=== PATIENT | female | born 1980 | race Caucasian/White ===

== ENCOUNTER 2017-03-25 08:19 | Inpatient (IN) | payer MEDICAID, SELFPAY ==
[2017-03-25 08:47] VITALS: BMI 31.0
[2017-03-25] MEDS ORDERED: Carboprost 250 MCG/ML AMP IM PRN (09:19)
[2017-03-25] MEDS ORDERED: LR / Pitocin 40 units/1000 ml 1,000 ML IV PRN (09:19)
[2017-03-25] MEDS ORDERED: Lidocaine 1% (PF) 30 ML VIAL SC PRN (09:19)
[2017-03-25] MEDS ORDERED: Ondansetron HCl/PF 4 MG/2 ML Vial IVP PRN ×2 (09:19→17:39)
[2017-03-25] MEDS ORDERED: HYDROcodone/Acetaminophen 5/325 mg Tablet PO PRN ×2 (09:19)
[2017-03-25] MEDS ORDERED: Diphenoxylate HCl/Atropine Tablet PO PRN ×2 (09:19)
[2017-03-25] MEDS ORDERED: Promethazine HCl 25 MG/ML VIAL IM PRN ×2 (09:19→17:39)
[2017-03-25] MEDS ORDERED: Misoprostol 200 MCG TAB PR PRN (09:19)
[2017-03-25] MEDS ORDERED: Acetaminophen 500 MG TAB PO PRN (09:19)
[2017-03-25] MEDS ORDERED: Ibuprofen 800 MG TAB PO PRN (09:19)
[2017-03-25] MEDS: Lactated Ringer's 1,000 ML IV SCH ×3 (10:02→17:42)
[2017-03-25] MEDS: LR 500 ML/Oxytocin 10 units 500 ML IV SCH ×2 (10:15→20:56)
[2017-03-25 10:38] LABS: Mean Platelet Volume 9.2 fL (7.4-10.4); Red Blood Cell (RBC) Count 4.39 mill/uL (4.20-5.40); White Blood Cell (WBC) Count 6.6 thou/uL (4.8-10.8)
[2017-03-25 11:00] LABS: ALT (SGPT) 10 U/L (8-55); AST (SGOT) 23 U/L (5-34); Alkaline Phosphatase 275 U/L (40-150); Anion Gap 16 mmol/L (10-20); BUN (Urea Nitrogen) 7 mg/dL (7.0-18.7); Bilirubin, Total 0.2 mg/dL (0.2-1.2); Calc. Creatinine Clearance 145 mL/min (70-130); Carbon Dioxide 16 mmol/L (22-29); Chloride 108 mmol/L (98-107); Estimated GFR-MDRD 80; Globulin 3.7 g/dL (2.4-3.5); Protein, Total 6.8 g/dL (6.0-8.3)
--- NOTE | 2017-03-25 11:05 | PDOC.LDHP ---
Labor and Delivery H&P Chief complaint: loss of fluid HPI: Pt is a 36yo @ 40w w LOF at 0700 this AM. Current gestational age (weeks): 40 Due date: 03/25/17 Dating criteria: last menstrual period Grav: 2 Para: 0 Current complications: other (following for S>D) Abnormal US findings: No Past Medical History: none Current medications: pre-renetta vitamins Previous surgical history: none Allergies/Adverse Reactions: Allergies Allergy/AdvReac Type Severity Reaction Status Date / Time No Known Allergies Allergy Verified 03/25/17 08:47 Social history: none - Physical Exam Vital signs reviewed and normal: yes General: resting Lungs: CTAB Abdomen: gravid Extremeties: trace edema FHT: category 1 [place] contractions every: 5 - Vaginal Exam cm dilated: 2 Effacement: 50% Station: -2 - OB Labs Blood type: B RH: positive HIV: negative RPR: negative HEPSAg: negative 1 hour GCT: negative GBS: negative Additional Labs: Rub Immune - Assessment L&D Assessment: term rupture in membranes - Plan Plan: admit to L&D, labor augmentation if indicated, informed consent obtained, anesthesia consult for pain management -: PROM at term, pitocin if indicated, close monitoring w suspected LGA infant, EFW per sono last week 4300gm.
--- NOTE | 2017-03-25 16:39 | PDOC.LDPN ---
Labor & Delivery Progress Note - Subjective Subjective: comfortable - Objective Vital signs reviewed and normal: yes (occ mild range) General: breathing through contractions Dilation: 1 Effacement: 50% Station: -3 FHT: category 1 [place] contractions every: 4 AROM: clear fluid - Assessment (1) 40 weeks gestation of Code(s): Z3A.40 - 40 WEEKS GESTATION OF Current Visit: Yes Status : Acute (2) Premature rupture of membranes Code(s): O42.90 - RAMILA ROM, 7TH0 BETW RUPT & ONST LABR, UNSP WEEKS OF GEST Current Visit: Yes Status: Acute Plan: continue plan of care
--- NOTE | 2017-03-25 16:40 | PDOC.LDPN ---
Labor & Delivery Progress Note - Subjective Subjective: painful contractions - Objective Vital signs reviewed and normal: yes (mild range 140/80) General: breathing through contractions Dilation: 4 Effacement: 50% Station: -3 FHT: category 1 [place] contractions every: 3 AROM: clear fluid - Assessment (1) 40 weeks gestation of Code(s): Z3A.40 - 40 WEEKS GESTATION OF Current Visit: Yes Status : Acute (2) Premature rupture of membranes Code(s): O42.90 - RAMILA ROM, 7TH0 BETW RUPT & ONST LABR, UNSP WEEKS OF GEST Current Visit: Yes Status: Acute Plan: continue plan of care -: Making cervical change, position still high. Cont plan of care.
[2017-03-25] MEDS ORDERED: Fentanyl 4 mcg/Marc 0.1% Cadd 100 ML ONE (16:42)
[2017-03-25] MEDS ORDERED: Fentanyl 100 MCG/2 ML VIAL ONE (17:15)
[2017-03-25] MEDS ORDERED: Acetaminophen 325 MG TAB PO PRN (17:39)
[2017-03-25] MEDS ORDERED: Naloxone HCl 0.4 mg/ml Vial IVP PRN ×2 (17:39)
[2017-03-25] MEDS ORDERED: ePHEDrine/0.9% NaCl/PF SYRINGE 50 mg/10 ml SLOW IVP PRN (17:39)
[2017-03-25] MEDS ORDERED: Eucerin (Mineral Oil/Petrolatum,White) 30 gm Jar TOP PRN (17:39)
[2017-03-25] MEDS ORDERED: Lactated Ringer's 500 ML IV PRN (17:39)
[2017-03-25] MEDS ORDERED: diphenhydrAMINE HCl 50 MG/ML 1 ML VIAL IVP PRN (17:39)
[2017-03-25] MEDS ORDERED: Fentanyl 4mcg/Marcaine 0.1% Cassette 100 ML EPIDURAL SCH (17:45)
[2017-03-25] MEDS ORDERED: Communication Order-Pharmacy FS SCH (17:45)
[2017-03-26] MEDS ORDERED: Lidocaine 1% (PF) 30 ML VIAL ONE (00:57)
[2017-03-26] MEDS: Lactated Ringer's 1,000 ML IV SCH (03:12)
--- NOTE | 2017-03-26 05:40 | PDOC.OPDEL ---
OB Operative/Delivery Note Delivery Dr/Surgeon: Mónica Luevano MD Pre-Delivery Diagnosis: ruptured membrane Procedure/Post Delivery Dx: operative vaginal delivery (vacuum assisted) Weeks gestation: 40 Anesthesia: epidural - Findings A Sex: male - 5 min: 8 - 10 min: 9 - Additional Findings/Plan Placenta delivered: spontaneous Repaired Obstetrical Laceration: 2nd degree Estimated blood loss: 550 Compilations/Other Findings: Patient was 10/100/+1 and pushed for 3.5 hours with decent to +4 station. Vacuum applied due to maternal exhaustion and prolonged second stage. head brought to +5 with 2 contractions at a pressure of 50 cm hg. Pressure released between contractions with a pop off during the release in pressure. Vacuum removed and then head and shoulders delivered over next contraction with ease. Arterial blood gas: pH 7.19 EBL 550, given Methergine 0.2mg and cytotec 800 ug. Post delivery plan: routine recovery
[2017-03-26] MEDS ORDERED: Milk Of Magnesia 30 ML UDCUP PO PRN (08:29)
[2017-03-26] MEDS ORDERED: Bisacodyl 10 MG SUPP PR PRN (08:29)
[2017-03-26] MEDS ORDERED: Varicella virus, LIVE 0.5 ML VIAL SC ONE (08:29)
[2017-03-26] MEDS ORDERED: HYDROcodone/Acetaminophen 5/325 mg Tablet PO PRN ×2 (08:29)
[2017-03-26] MEDS ORDERED: Adacel (T-DAP) 0.5 ML VIAL IM ONE (08:29)
[2017-03-26] MEDS ORDERED: Ondansetron HCl/PF 4 MG/2 ML Vial IVP PRN (08:29)
[2017-03-26] MEDS ORDERED: Measles/Mumps/Rubella 10 MCG/0.5 ML VIAL SC ONE (08:29)
[2017-03-26] MEDS ORDERED: Benzocaine/Menthol 20-0.5% 60 ML CAN TOP PRN (08:29)
[2017-03-26] MEDS ORDERED: LR / Pitocin 40 units/1000 ml 1,000 ML IV SCH (08:30)
[2017-03-26] MEDS: Docusate (Surfak) 240 MG CAP PO SCH ×2 (10:00→21:24)
--- NOTE | 2017-03-26 12:53 | PDOC.PP ---
Post Progress Note Post Day #: 0 -: doing well, tired, a little sore, no heavy bleeding PO intake tolerated: yes Flatus: yes Ambulation: yes Vital Signs (12 hours) Temp Pulse Resp BP 03/26/17 08:45 81 18 117/67 03/26/17 07:50 97.8 F 83 18 03/26/17 07:45 98.8 F 81 18 128/85 Weight Weight 210 lb - Physical Examination General: NAD Neurological: no gross focal deficits Psychiatric: normal affect Result Diagrams: 03/25/17 10:02 03/25/17 10:02 Additional Labs: Post Labs Blood Type B POSITIVE 03/25/17 10:02 Hep Bs Antigen Non-Reactive S/CO (NonReactive) 03/25/17 10:02 (1) 40 weeks gestation of Code(s): Z3A.40 - 40 WEEKS GESTATION OF Status: Acute (2) Premature rupture of membranes Code(s): O42.90 - RAMILA ROM, 7TH0 BETW RUPT & ONST LABR, UNSP WEEKS OF GEST Status: Acute (3) Vaginal delivery Code(s): O80 - ENCOUNTER FOR FULL-TERM UNCOMPLICATED DELIVERY Status: Acute - Assessment/Plan PPD0 sp VAVD @ 40.1 weeks. Doing well, continue PP care.
[2017-03-26] MEDS: Ibuprofen 800 MG TAB PO SCH ×2 (14:13→21:25)
[2017-03-26] MEDS: Ferrous Sulfate 325 MG TAB PO SCH (18:27)
[2017-03-27] MEDS: Ibuprofen 800 MG TAB PO SCH ×3 (05:51→21:31)
[2017-03-27] MEDS: Ferrous Sulfate 325 MG TAB PO SCH ×2 (09:32→17:51)
[2017-03-27] MEDS: Docusate (Surfak) 240 MG CAP PO SCH ×2 (09:42→21:31)
--- NOTE | 2017-03-27 10:49 | PDOC.PP ---
Post Progress Note Post Day #: 1 -: doing well, no concerns, plan for DC tomorrow, nursing well PO intake tolerated: yes Flatus: yes Ambulation: yes Vital Signs (12 hours) Temp Pulse Resp BP 03/27/17 08:10 98.2 F 92 20 118/72 03/27/17 08:00 98.2 F 92 20 03/27/17 00:06 98.3 F 85 18 123/63 Weight Weight 210 lb - Physical Examination General: NAD Abdominal: no distention Fundus firm & at: below umb Extremities: negative homans (B) Skin: no rash Neurological: no gross focal deficits Psychiatric: normal affect Result Diagrams: 03/25/17 10:02 03/25/17 10:02 Additional Labs: Post Labs Blood Type B POSITIVE 03/25/17 10:02 Hep Bs Antigen Non-Reactive S/CO (NonReactive) 03/25/17 10:02 (1) 40 weeks gestation of Code(s): Z3A.40 - 40 WEEKS GESTATION OF Status: Acute (2) Premature rupture of membranes Code(s): O42.90 - RAMILA ROM, 7TH0 BETW RUPT & ONST LABR, UNSP WEEKS OF GEST Status: Acute (3) Vaginal delivery Code(s): O80 - ENCOUNTER FOR FULL-TERM UNCOMPLICATED DELIVERY Status: Acute - Assessment/Plan PPD1 plan for DC tomorrow, cont PP care.
[2017-03-28] MEDS: Ibuprofen 800 MG TAB PO SCH (06:23)
[2017-03-28] MEDS: Ferrous Sulfate 325 MG TAB PO SCH (07:54)
[2017-03-28 08:14] VITALS: BP 149/88; TEMP 98.1
--- NOTE | 2017-03-28 08:15 | PDOC.PP ---
Post Progress Note Post Day #: 2 -: doing well, desires DC no concerns PO intake tolerated: yes Flatus: yes Ambulation: yes Vital Signs (12 hours) Temp Pulse Resp BP 03/28/17 08:13 98.1 F 82 20 149/88 H Weight Weight 210 lb - Physical Examination General: NAD Abdominal: no distention Fundus firm & at: below umb Neurological: no gross focal deficits Psychiatric: normal affect Result Diagrams: 03/25/17 10:02 03/25/17 10:02 Additional Labs: Post Labs Blood Type B POSITIVE 03/25/17 10:02 Hep Bs Antigen Non-Reactive S/CO (NonReactive) 03/25/17 10:02 (1) 40 weeks gestation of Code(s): Z3A.40 - 40 WEEKS GESTATION OF Status: Acute (2) Premature rupture of membranes Code(s): O42.90 - RAMILA ROM, 7TH0 BETW RUPT & ONST LABR, UNSP WEEKS OF GEST Status: Acute (3) Vaginal delivery Code(s): O80 - ENCOUNTER FOR FULL-TERM UNCOMPLICATED DELIVERY Status: Acute - Assessment/Plan PPD 2 doing well, DC today.
[2017-03-28] MEDS: Docusate (Surfak) 240 MG CAP PO SCH (08:50)
== END 2017-03-28 11:45 | disposition home or self-care (01) | DRG 775 ==
LOC: L&D/OP 08:19 → L&D 09:21 → 3SW 03-26 07:43
PROVIDERS: ADMIT Obstetrics & Gynecology; ATTEND Obstetrics & Gynecology
PROC: 10D07Z6 Extraction of Products of Conception, Vacuum, Via Natural or Artificial Opening (ICD-10-PCS; principal; 2017-03-26)
PROC: 0KQM0ZZ Repair Perineum Muscle, Open Approach (ICD-10-PCS; 2017-03-26)
PROC: 3E0P3VZ Introduction of Hormone into Female Reproductive, Percutaneous Approach (ICD-10-PCS; 2017-03-26)
DX: O63.1 Prolonged second stage (of labor) (principal); O69.81X0 Labor and delivery complicated by cord around neck, without compression, not applicable or unspecified; O75.81 Maternal exhaustion complicating labor and delivery; O70.1 Second degree perineal laceration during delivery; Z3A.40 40 weeks gestation of pregnancy; Z37.0 Single live birth
CPT/HCPCS: 80053; 82805; 85027; 86780; 87340; J2001; J2210; J2405; J3010; J3490; J7120